=== PATIENT | male | born 1935 | race Caucasian/White ===

== ENCOUNTER 2018-06-17 05:38 | Inpatient (IN) | payer MEDICARE ==
[2018-06-17] MEDS ORDERED: Heparin 10,000 UNITS/1 ML VIAL ONE ×2 (06:37→09:21)
[2018-06-17] MEDS ORDERED: Protamine Sulfate 50 MG/5 ML VIAL ONE (06:37)
[2018-06-17] MEDS ORDERED: CEFAZOLIN 2 GM/50 ML BAG ONE (06:55)
[2018-06-17] MEDS ORDERED: Midazolam HCl 2 mg/2 ml Vial ONE (06:56)
[2018-06-17] MEDS ORDERED: Fentanyl 100 MCG/2 ML VIAL ONE ×3 (06:56→13:15)
[2018-06-17 06:57] LABS: Hemoglobin 12.6 g/dL (14.0-18.0); Mean Corpuscular HGB CONC 33.4 g/dL (32.0-36.0); Mean Corpuscular Hemoglobin 32.2 pg (27.0-31.0); Mean Corpuscular Volume 96.4 fL (78.0-98.0); Mean Platelet Volume 6.7 fL (7.4-10.4); Platelet Count 148 thou/uL (130-400); RBC Distribution Width 11.5 % (11.5-14.5); Red Blood Cell (RBC) Count 3.92 mill/uL (4.70-6.10); White Blood Cell (WBC) Count 5.7 thou/uL (4.8-10.8)
[2018-06-17 07:02] LABS: Anion Gap 11 mmol/L (10-20); BUN (Urea Nitrogen) 19 mg/dL (8.4-25.7); Calc. Creatinine Clearance 46 mL/min (70-130); Calcium 9.2 mg/dL (7.8-10.44); Carbon Dioxide 24 mmol/L (23-31); Chloride 110 mmol/L (98-107); Estimated GFR-MDRD 46; Glucose 97 mg/dL (83-110); Sodium 141 mmol/L (136-145)
[2018-06-17] MEDS ORDERED: Phenylephrine HCL 10 MG/ML VIAL ONE (07:17)
[2018-06-17] MEDS ORDERED: Famotidine/PF 20 mg/2ml Vial ONE (07:17)
--- NOTE | 2018-06-17 08:22 | HP ---
PREOPERATIVE DIAGNOSIS: Endoleak status post endovascular aneurysm repair in 2012. HISTORY OF PRESENT ILLNESS: This is an 83-year-old gentleman, who underwent endovascular aneurysm repair for a 5.3 cm aneurysm with a two-piece device in 2012. His followup ultrasound showed shrinkage of the graft. However, ultrasound in April of this year showed a new endoleak and enlarging aneurysm. CT angiogram demonstrated an endoleak type unknown. He is now being admitted for replacement of this endovascular aneurysm repair graft. PAST MEDICAL HISTORY: Includes atrial fibrillation. He is being treated by Dr. Chairez for this. PAST SURGICAL HISTORY: Includes left knee replacement in 2012, possibly TURP in 2007, EVAR in 2012, cholecystectomy, and appendectomy. SOCIAL HISTORY: He is , retired [employer] teacher. Has not smoked in many years. REVIEW OF SYSTEMS: Significant for right knee pain. He has no resting shortness of breath. No chest pain. No palpitations. He has nocturia x2. MEDICATIONS: Include; 1. Albuterol inhaler 2 puffs b.i.d. 2. Fosamax 70 every week. 3. Eliquis 5 mg b.i.d. 4. Calcium supplements. 5. Vitamin D supplements. 6. Multaq 400 b.i.d. 7. Tramadol p.r.n. ALLERGIES: NONE KNOWN. PHYSICAL EXAMINATION: GENERAL: He is alert, cooperative gentleman. VITAL SIGNS: Weight 84 kg, height 5 feet and 7 inches. Blood pressure 140/90. NECK: No carotid bruits. LUNGS: Clear to auscultation. CARDIAC: Presently regular rhythm. No murmurs. ABDOMEN: Soft and nontender and I do not appreciate an aneurysm. EXTREMITIES: He has palpable femoral pulses with a scar in his right groin. He has a weak left dorsalis pedis and no pedal pulses in the right foot with no peripheral edema. PLAN: At this time is endovascular aneurysm repair. Informed consent has been obtained. Job ID: [id number] [facility]
[2018-06-17] MEDS ORDERED: Meperidine HCl/PF 25 MG/ML VIAL SLOW IVP PRN (09:33)
[2018-06-17] MEDS ORDERED: Promethazine HCl 25 MG/ML VIAL IM PRN (09:33)
[2018-06-17] MEDS ORDERED: Promethazine HCl 25 MG/ML VIAL SLOW IVP PRN (09:33)
[2018-06-17] MEDS ORDERED: Morphine Sulfate 2 MG/ML SYRINGE SLOW IVP PRN (09:33)
[2018-06-17] MEDS ORDERED: Morphine 4 MG/ML VIAL ONE (10:54)
[2018-06-17] MEDS ORDERED: Promethazine HCl 25 MG/ML VIAL ONE (10:57)
[2018-06-17] MEDS ORDERED: Heparin 10,000 UNITS/ 10 ML VIAL ONE (11:48)
[2018-06-17] MEDS ORDERED: Dexamethasone 20 MG/5 ML VIAL ONE (11:48)
[2018-06-17] MEDS ORDERED: Glycopyrrolate 0.2 MG/ML 5 ML SYRINGE ONE (11:48)
[2018-06-17] MEDS ORDERED: Rocuronium Bromide 10 MG/ML (10ML VIAL) ONE (11:48)
[2018-06-17] MEDS ORDERED: ePHEDrine/0.9% NaCl/PF SYRINGE 50 mg/10 ml ONE (11:48)
[2018-06-17] MEDS ORDERED: Lidocaine 1% PF 5 ML VIAL ONE (11:48)
[2018-06-17] MEDS ORDERED: Ondansetron PF 4 MG/2 ML Vial ONE (11:48)
[2018-06-17] MEDS ORDERED: PROPOFOL 200 MG/20 ML VIAL ONE (11:48)
[2018-06-17] MEDS ORDERED: Nitroglycerin 50 MG/250 ML BOT 250 ML ONE (12:18)
[2018-06-17 12:25] VITALS: BMI 29.0
--- NOTE | 2018-06-17 12:46 | OP ---
DATE OF PROCEDURE: 06/17/2018 PREOPERATIVE DIAGNOSIS: Previous endovascular aneurysm repair with endoleak. PROCEDURES PERFORMED: Endovascular aneurysm redo with a [employer] main body 32 , 16, 145 on the right and then a right and left extension [id number] bilaterally. SCOREBOARD OPERATOR: Bahman Galindo MD. CONTRAST: 72 mL. FLUOROSCOPY: 27 minutes and 58 seconds. DESCRIPTION OF PROCEDURE: After adequate anesthesia had been obtained, the patient was prepped and draped. Using ultrasound, both common femoral arteries were punctured and treated with a pair of ProGlide on each side. 12-English sheath was then placed and heparin was administered and ACT monitored. Initially on the right side, a wire was negotiated up through the previous stent graft using an angled Guy catheter. After this had been done, a reliant balloon was advanced over this wire, slightly inflated, and withdrawn to ensure that the wire had not gone behind any struts. Similar procedure was then performed on the left. On the left side, a 12-English dilator and sheath were then passed over a stiff guidewire into the aneurysm sac and on the right side, the Contra catheter was advanced and angiography obtained. The source of the endoleak could not be determined and based on previous planning, it was elected to redo the stent graft. The main body was then advanced up the right side over a stiff wire and after repeating angiography, deployed just below the renal arteries. After this had been accomplished, the gate was carefully cannulated and the left limb was then deployed. The right limb was then deployed after removing the main body device. Balloon inflation was then carried out and completion angiography showed a good result with no endoleak. Good positioning below the renal arteries and distally above the hypogastric arteries. Following this, wires and sheaths were removed after deployment of the two ProGlide on the left. A third ProGlide was deployed on the right with good hemostasis. Heparin was partially reversed with protamine and the patient was taken to the recovery room in guarded condition. Job ID: [id number] [facility]
[2018-06-17] MEDS ORDERED: hydrALAZINE 20 MG/ML VIAL ONE (13:35)
[2018-06-17] MEDS ORDERED: hydrALAZINE 20 MG/ML VIAL SLOW IVP PRN (14:52)
[2018-06-17] MEDS ORDERED: Ondansetron PF 4 MG/2 ML Vial IVP PRN (14:59)
[2018-06-17] MEDS ORDERED: HYDROcodone/Acetaminophen 5/325 mg Tablet PO PRN ×2 (14:59)
[2018-06-17] MEDS ORDERED: Acetaminophen 325 MG TAB PO PRN (14:59)
[2018-06-17] MEDS ORDERED: Sodium Chloride 0.9% 1,000 ML IV SCH (14:59)
[2018-06-17] MEDS ORDERED: PROVENTIL INHALER 6.7 G (200 INHALATIONS) INH PRN (14:59)
[2018-06-17] MEDS ORDERED: traMADol HCl 50 MG TAB PO PRN (14:59)
[2018-06-17] MEDS ORDERED: Nitroglycerin 50 MG/250 ML BOT 250 ML IVPB PRN (14:59)
[2018-06-17] MEDS ORDERED: Fentanyl 100 MCG/2 ML VIAL SLOW IVP PRN ×2 (14:59)
[2018-06-17] MEDS ORDERED: Amlodipine 5 MG TAB PO SCH (15:00)
[2018-06-17 15:54] VITALS: BP 151/54
[2018-06-17] MEDS: CEFAZOLIN 2 GM/50 ML BAG IVPB SCH ×2 (15:54→23:40)
[2018-06-17] MEDS: Dronedarone HCl 400 MG TAB PO SCH (21:06)
[2018-06-18 03:54] LABS: #Lymphocytes 1.3 thou/uL (1.20-3.40); #Monocytes 0.7 thou/uL (0.11-0.59); #Neutrophils 5.8 thou/uL (1.40-6.50); %Eosinophils 0.1 % (0.0-10.0); %Lymphocytes 16.6 % (21.0-51.0); %Monocytes 9.1 % (0.0-10.0); %Neutrophils 74.2 % (42.0-75.0); Hemoglobin 9.6 g/dL (14.0-18.0); Mean Corpuscular Hemoglobin 32.9 pg (27.0-31.0); Mean Corpuscular Volume 96.8 fL (78.0-98.0); Mean Platelet Volume 6.9 fL (7.4-10.4); Platelet Count 103 thou/uL (130-400); RBC Distribution Width 11.5 % (11.5-14.5); Red Blood Cell (RBC) Count 2.93 mill/uL (4.70-6.10); White Blood Cell (WBC) Count 7.9 thou/uL (4.8-10.8)
[2018-06-18 04:14] LABS: Anion Gap 12 mmol/L (10-20); BUN (Urea Nitrogen) 16 mg/dL (8.4-25.7); Calc. Creatinine Clearance 50 mL/min (70-130); Calcium 7.7 mg/dL (7.8-10.44); Carbon Dioxide 18 mmol/L (23-31); Chloride 112 mmol/L (98-107); Estimated GFR-MDRD 51; Glucose 116 mg/dL (83-110); Potassium 3.7 mmol/L (3.5-5.1); Sodium 138 mmol/L (136-145)
[2018-06-18] MEDS: CEFAZOLIN 2 GM/50 ML BAG IVPB SCH (08:53)
[2018-06-18] MEDS: Dronedarone HCl 400 MG TAB PO SCH (08:55)
[2018-06-18] MEDS ORDERED: Aspirin 325 mg Enteric Coated Tablet PO SCH (09:00)
[2018-06-18 10:28] VITALS: TEMP 98
--- NOTE | 2018-06-18 12:23 | DIS ---
DATE OF ADMISSION: 06/17/2018 DATE OF DISCHARGE: 06/18/2018 PRINCIPAL DIAGNOSIS: Previous endovascular repair of abdominal aortic aneurysm with endoleak. PROCEDURE PERFORMED: Redo endovascular aneurysm repair, 06/17/2018. HISTORY OF PRESENT ILLNESS AND HOSPITAL COURSE: The patient is an 83-year-old man about 5 years status post endovascular repair of an abdominal aortic aneurysm. Initially, he appeared to have competency of his repair and the aneurysmal sac collapsed around the prosthesis, but then further followup demonstrated an endoleak with an associated increase in size of the aneurysmal sac. It was difficult to tell both on preoperative CT scanning or intraoperative aortography the nature of the endoleak. In fact, at the time of intraoperative aortography, no endoleak could readily be demonstrated. He underwent redo repair with the proximal landing zone placing the new graft fabric at the inferior margin of the takeoff of the renal arteries, which radiographically appeared to be minimally above the previous landing zone and the limbs of the graft were taken down to just proximal to the common iliac bifurcations. No endoleak could be appreciated on postprocedure completion angiography. The patient had an uneventful overnight stay in the intensive care unit. He was kept on IV fluids for several hours and on postoperative day one, his BUN and creatinine were 16 and 1.35 softly down from his preprocedure BUN and creatinine of 19 and 1.47. He has maintained good urine output during the night. His wounds are clean and dry with no particular swelling and minimal bruising. His feet are warm and pink. He is being discharged home now to resume his home medications with the modifications to continue holding his Eliquis for today and to restart it tomorrow and to use baby aspirin rather than adult aspirin. Job ID: [id number]
[2018-06-19] MEDS ORDERED: Aspirin 81 mg Enteric Coated Tablet PO SCH (09:00)
== END 2018-06-18 11:40 | disposition home or self-care (01) | DRG 269 ==
LOC: SURG A 05:38 → CCU 12:04
PROVIDERS: ADMIT Thoracic Surgery (Cardiothoracic Vascular Surgery); ATTEND Thoracic Surgery (Cardiothoracic Vascular Surgery)
PROC: 04V03DZ Restriction of Abdominal Aorta with Intraluminal Device, Percutaneous Approach (ICD-10-PCS; principal; 2018-06-17)
DX: I71.4 Abdominal aortic aneurysm, without rupture (principal); T82.330A Leakage of aortic (bifurcation) graft (replacement), initial encounter; I48.91 Unspecified atrial fibrillation; M25.561 Pain in right knee; Z87.891 Personal history of nicotine dependence; Z96.652 Presence of left artificial knee joint; Z90.49 Acquired absence of other specified parts of digestive tract
CPT/HCPCS: 76000; 80048; 85025; 85027; 86850; 86900; 86901; 93005; 93010; C1726; C1760; C1769; C1894; J0131; J0360; J1100; J1642; J1644; J2001; J2250; J2270; J2370; J2405; J2550; J2704; J2720; J3010; S0028